=== PATIENT | male | born 1955 | race Caucasian/White ===

== ENCOUNTER 2018-11-11 16:10 | Inpatient (IN) | payer BC ==
[2018-11-11] VITALS (14 sets, daily range): BP systolic 130–153; BP diastolic 76–93; PULSE 80–105; RESP 10–23; Ht 180.3 cm; Wt 98.4 kg
[~2018-11-11] VITALS: Ht 180.3 cm; Wt 98.4 kg
[~2018-11-11 16:10] MED LIST: ATOR10TA65 PO; DESFLURANE 15 MIN ONE
[2018-11-11] MEDS ORDERED: LACTATED RINGER'S 1,000 ML IV SCH (17:00)
[2018-11-11] MEDS ORDERED: POLYMYXIN/BACITRACIN 1L IRRIG ONE (17:53)
[2018-11-11] MEDS ORDERED: POVIDONE IODINE 10% 28.4 GM OINT ONE (17:53)
[2018-11-11] MEDS ORDERED: ROPIVACAINE 0.5 % 30 ML VIAL ONE ×2 (17:53→18:00)
[2018-11-11] MEDS ORDERED: ONDANSETRON 4 MG INJ ONE (17:59)
[2018-11-11] MEDS ORDERED: FENTAnyl 50 MCG/ML VIAL ONE (17:59)
[2018-11-11] MEDS ORDERED: DEXAMETHASONE 4 MG/ML 5 ML INJ ONE (17:59)
[2018-11-11] MEDS ORDERED: CEFAZOLIN 1 GM INJ ONE (17:59)
[2018-11-11] MEDS ORDERED: MIDAZOLAM 1 MG/ML 2 ML INJ ONE (17:59)
[2018-11-11] MEDS ORDERED: GLYCOPYRROLATE 0.4 MG INJ ONE (17:59)
[2018-11-11] MEDS ORDERED: ROCURONIUM 50 MG INJ ONE (17:59)
[2018-11-11] MEDS ORDERED: PROPOFOL 20 ML ONE (17:59)
[2018-11-11] MEDS ORDERED: NEOSTIGMINE 3 MG/3 ML SYRINGE ONE (17:59)
--- NOTE | 2018-11-11 18:09 | PREAC ---
Date/Time of Note Date/Time of Note DATE: 11/11/18 TIME: 18:07 Anesthesia Eval and Record Evaluation Time Pre-Procedure Interview DATE: 11/11/18 TIME: 18:07 Age 63 Sex male NPO: 8 hrs Preoperative diagnosis Right Ankle Fracture Planned procedure Right Ankle Arthroscopy, Extensive Debridment and ORIF of the Right Ankle Past Medical History Past Medical History: Includes Cardio: Dyslipidemia Surgery & Anesthesia Issues No known issue Meds Anticoagulation: No Beta Adan within 24 hr: No Reason Beta Adan not given: Pt. not on B-Adan Reported Medications Atorvastatin Calcium (Atorvastatin Calcium) 10 Mg Tablet, 10 MG PO QHS, #30 TAB 11/11/18 Current Medications Lactated Ringer's 1,000 ml @ 30 mls/hr Q24H IV ; Start 11/11/18 at 17:00 Meds reviewed: Yes Allergies Coded Allergies: No Known Allergy (Unverified , 11/11/18) Allergies Reviewed: Yes Labs/Studies Labs Reviewed: Reviewed by anesthesiologist test: N/A Studies: ECG (n/a), CXR (n/a) Pre-procedure Exam Last vitals Vital Signs Date Temp Pulse Resp B/P (MAP) Pulse Ox O2 O2 Flow FiO2 Time Delivery Rate 11/11/18 97.0 105 16 141/93 98 Room Air 16:53 (109) Airway: Adequate mouth opening, Adequate thyromental dist Mallampati: Mallampati II Teeth: Normal Lung: Normal Heart: Normal ASA Physical Status ASA physical status: 2 Emergency: None Planned Anesthetic General/MAC: ETT Nerve block: Femoral (right), Sciatic (right) Planned Pain Management Single shot nerve block, Parenteral pain med Pre-operative Attestations Prior to commencing anesthesia and surgery, the patient was re-evaluated, there was verification of: *The patient's identity *The results of appropriate recent lab work and preoperative vital signs *The above evaluation not changing prior to induction *Anesthetic plan, risk benefits, alternative and complications discussed with patient/family; questions answered; patient/family understands, accepts and wishes to proceed. ALFIE ELMORE MD Nov 11, 2018 18:09
[2018-11-11] MEDS ORDERED: THROMBIN (BOVINE) 5,000 UNIT VIAL TP ONE (18:10)
[2018-11-11] MEDS ORDERED: CA CHLORIDE (GM) 10% 10 ML INJ ONE (18:10)
[2018-11-11] MEDS ORDERED: METOCLOPRAMIDE 10 MG INJ ONE (22:08)
--- NOTE | 2018-11-11 22:23 | PAC ---
Date/Time of Note Date/Time of Note DATE: 11/11/18 TIME: 22:22 Post-Anesthesia Notes Post-Anesthesia Note Last documented vital signs Vital Signs Date Temp Pulse Resp B/P (MAP) Pulse Ox O2 O2 Flow FiO2 Time Delivery Rate 11/11/18 97.0 105 16 141/93 98 Room Air 22:23 (109) Activity: WNL Respiratory function: WNL Cardiovascular function: WNL Mental status: Baseline Pain reasonably controlled: Yes Hydration appropriate: Yes Nausea/Vomiting absent: Yes David Izquierdo M.D. Nov 11, 2018 22:23
--- NOTE | 2018-11-11 22:25 | OPPN ---
Date/Time of Note Date/Time of Note DATE: 11/11/18 TIME: 22:24 Operative Report Preoperative Diagnosis Right medial malleolous fracture Postoperative Diagnosis same Operation/Procedure Performed Arthroscopic debridement of right ankle and open reduction internal fixation of right medial mal fracture. Surgeon see signature line mechanic's assistant DO Gwen Anesthesia: general Estimated blood loss: 10 - 50 ml's Transfusion Required none Specimen none Grafts/Implants none Complications none KAT GILBERT MD Nov 11, 2018 22:25
[2018-11-11] MEDS ORDERED: DIPHENHYDRAMINE 25 MG CAP PO PRN (22:30)
[2018-11-11] MEDS ORDERED: ONDANSETRON 4 MG INJ IV PRN (22:30)
[2018-11-11] MEDS ORDERED: BISACODYL 10 MG SUPP PR PRN (22:30)
[2018-11-11] MEDS ORDERED: OXYCODONE/ACETAMINOPHEN (5/325) TAB PO PRN (22:30)
[2018-11-11] MEDS ORDERED: morphine 10 MG INJ IV PRN (22:30)
[2018-11-11] MEDS ORDERED: HYDROmorphONE 0.2 MG/ML PCA IV SCH ×2 (22:30→23:00)
[2018-11-11] MEDS: CEFAZOLIN 1 GM/50 ML (PMX) 50 ML IVPB SCH (22:55)
[2018-11-11] MEDS: SOD CHLORIDE 0.9% 1,000 ML IV SCH (23:59)
--- NOTE | 2018-11-12 00:47 | OPR ---
DATE OF OPERATION: 11/11/2018 PREOPERATIVE DIAGNOSIS: Rotated displaced fracture of the medial malleolus, right ankle. POSTOPERATIVE DIAGNOSES: 1. Rotated displaced fracture of the medial malleolus, right ankle. 2. Osteochondral injury to the lateral talar dome without displacement, except for a small portion o f the cartilage. 3. Fracture debris, hematoma and cartilage fracture fragments. OPERATION PERFORMED: 1. Arthroscopy of the right ankle with soft tissue distraction. 2. Extensive debridement of the ankle. 3. Open reduction and fixation of the medial malleolar fracture with two 4.0 AO cannulated screws. 4. Use of fluoroscopy to verify position and reduction of the medial malleolus and of the screws. 5. Short-leg cast. SURGEON: Kat Flowers M.D. YEAST PUMPER: Johnathon Hidalgo D.O. ANESTHESIA: General with popliteal block. TOURNIQUET TIME: 72 minutes. DESCRIPTION OF PROCEDURE: The patient was taken to the operating room and placed in supine position. Satisfactory popliteal block was given. Satisfactory general anesthesia was administered, 2 grams Ancef intravenously. The right thigh was secured in the thigh valentino. Right leg was prepped and cortney ped in the usual manner. Superficial peroneal nerve was marked out. Soft tissue distraction was opal lied. Standard anteromedial, anterolateral, and posterolateral portals were used using extreme cauti on to avoid injuring the neurovascular structures. There was a displaced fracture of the medial mall eolus that we could see. There were some fracture fragments of cartilage and bone, but they were sma ll in nature. The majority of the fragment was intact. The medial talar dome was intact. Central o verhang was intact. Syndesmosis looked intact. There was scarring and hematoma on the lateral gutte r. The anterior talofibular ligament, otherwise looked intact. On the lateral talar dome; however, there was a nondisplaced crack of the cartilage from very anteriorly to the mid zone. I could put a probe and it was probably about a millimeter up to 2 mm deep fairly into the bone. It was not displa josue. There was a small displaced fragment more centrally, which was removed with a grasper and shave r. Loose bodies removed with a shaver along the medial malleolar talar articulation. The posterior gutter was debrided. The posterior articulation was smooth and glistening as was the central articul ation of the tibia and the talus. Curettes were used to remove all of the fracture hematoma from the medial malleolus. This was excised with the shaver. Once the fracture was well outlined proximally and distally, all the loose fragments were removed. We tried to reduce it, and it was not easy to r educe or to rotate. After complete debridement of the ankle anteriorly, centrally and posteriorly, t he ankle was irrigated clear. Ankle was then reprepped and draped. All new gowns and gloves and new instruments were used. Incision was made over the medial malleolus, centered anterior to posterior. Dissection carried down to subcutaneous tissue. Once we got down to the level of the periosteum, we felt where the fracture was displaced and made a transverse incision in line with the fracture, elevated the periosteum prox imally and distally until we could see the anterior portion of the fracture and posterior portion. W e carefully retracted the posterior tibial tendon and it remained intact. Further debridement of the fracture was done. We then used a reduction clamp, reduced it, temporarily fixate it with a 0.045 K -wire, checked in AP and lateral planes, and it looked like it was anatomically reduced. Two guide p ins and the 4.0 AO cannulated screw set were then inserted, checked in the AP and lateral position. Once they were appropriately positioned, a drill was placed over the pins just across the fracture si te and then two 50 mm 4.0 AO cannulated screws were then inserted and excellent fixation was obtained . They were checked in AP and lateral planes and looked to be in appropriate position with excellent reduction of the medial malleolus. Guide pins were removed. Final fluoroscopic views were then edward en that showed good position and alignment of the fracture in all planes. Wounds were irrigated with antibiotic solution. The periosteum was closed with a running 3-0 PDS. Subcutaneous tissue was bertin sed with 2-0 and 3-0 undyed Vicryl. Skin was closed with 4-0 black nylon. Saphenous nerve block wit h 0.5% ropivacaine. Compression dressing was applied as well as short-leg cast in neutral position. Cast was split in the recovery room. At the end of procedure, sponge and needle count was correct. The patient tolerated the procedure well and was brought to recovery room in stable condition. AIRBRUSH PAINTER ORTHOPEDIC SURGEON: During the procedure, an tax assistant orthopedic surgeon was used at [facility]. The tax assistant helped with manipulating the arthroscope, distracting the ankle and also with reducing the fracture and inserting the screws. While I held the fracture reduced, the tax assistant put the guide pins in and then we both put the screws in. Without a skilled orthopedic surgeon eran pena, we could not have done this and should be compensated appropriately. Dictated By: KAT AWAN/DANIELLE Conf#: [id number] DID#: [id number]
[2018-11-12 02:30] VITALS: BP 157/82; PULSE 96; RESP 19
[2018-11-12] MEDS: CEFAZOLIN 1 GM/50 ML (PMX) 50 ML IVPB SCH (05:32)
--- NOTE | 2018-11-12 06:28 | PN ---
Date/Time of Note Date/Time of Note DATE: 11/12/18 TIME: 06:21 Assessment/Plan VTE Prophylaxis Risk score (from Nsg)>0 risk: 7 SCD applied (from Nsg): Yes Pharmacological prophylaxis: other Lines/Catheters IV Catheter Type (from Nrsg): Peripheral IV Subjective 24 Hr Interval Summary Free Text/Dictation 63 y/o M POD#1 right ankle arthroscopy and open reduction internal fixation right medial malleolus ankle fracture S: Pt doing very well. Block still working. Minimal to no pain. No chest pain, shortness of breath, fever, chills, nausea, vomiting. He is eager to go home today. O: AFVSS, NAD, AAOx3 MSK: RLE: cast in place, toes warm and well perfused, minimal to no sensation to light touch and unable to wiggle toes as block is still in effect Plan: 1. Up with PT this morning. 2. If does well with PT, then he is ok for d/c home today 3. Home health to visit pt at home today at 4 pm per pt 4. Pain control 5. dvt ppx: scd's, ambulation 6. iv abx: ancef while in the hospital 7. NWB RLE 8. Ok to be up to the restroom with assistance Exam/Review of Systems Exam Vitals Vital Signs Date Temp Pulse Resp B/P (MAP) Pulse Ox O2 O2 Flow FiO2 Time Delivery Rate 11/12/18 97.8 96 19 157/82 97 02:30 (107) 11/11/18 Nasal 2.0 23:15 Cannula Intake and Output 11/11/18 11/11/18 11/12/18 1515:00 23:00 07:00 IntakeIntake Total 2000 ml 550 ml OutputOutput Total 20 ml BalanceBalance 1980 ml 550 ml Medications Medication Current Medications Lactated Ringer's 1,000 ml @ 30 mls/hr Q24H IV ; Start 11/11/18 at 17:00 Senna/Docusate Sodium (Senokot-S) 1 tab BID PO ; Start 11/12/18 at 09:00 Magnesium Hydroxide (Milk Of Mag) 30 ml HS PO ; Start 11/13/18 at 21:00 Bisacodyl (Dulcolax Supp) 10 mg DAILY PRN GA CONSTIPATION; Start 11/11/18 at 22:30 Sodium Chloride 1,000 ml @ 100 mls/hr Q10H IV Last administered on 11/11/18at 23:59; Admin Dose 100 MLS/HR; Start 11/11/18 at 22:25 Oxycodone/ Acetaminophen (Percocet (5/ 325)) 2 tab Q4H PRN PO PAIN; Start 11/11/18 at 22:30 Morphine Sulfate (morphine) 5 mg Q4H PRN IV PAIN LEVEL 7-10; Start 11/11/18 at 22:30 Cefazolin Sodium 50 ml @ 100 mls/hr Q8H IVPB Last administered on 11/12/18at 05:32; Admin Dose 100 MLS/HR; Start 11/11/18 at 22:30; Stop 11/13/18 at 14:59 Ondansetron HCl (Zofran Inj) 4 mg Q4H PRN IV NAUSEA AND/OR VOMITING; Start 11/11/18 at 22:30 Diphenhydramine HCl (Benadryl) 25 mg Q4H PRN PO ITCHING; Start 11/11/18 at 22:30 Hydromorphone HCl (Dilaudid PAIN MANAGEMENT NURSE) MG/HR CONTINUOUS RATE ... Q4PCA IV Last administered on 11/11/18at 22:57; Admin Dose 0.2 MG; Start 11/11/18 at 23:00 KAT GILBERT MD Nov 12, 2018 06:28
[2018-11-12 07:13] VITALS: BP 145/80; PULSE 91; RESP 18
[2018-11-12] MEDS: SOD CHLORIDE 0.9% 1,000 ML IV SCH (08:25)
[2018-11-12] MEDS ORDERED: SENNA/DOCUSATE NA (8.6MG/50MG) TAB PO SCH (09:00)
[2018-11-13] MEDS ORDERED: MAGNESIUM HYDROXIDE 30ML CUP PO SCH (21:00)
--- NOTE | 2018-11-15 01:19 | DS ---
DATE OF ADMISSION: 11/11/2018 DATE OF DISCHARGE: 11/12/2018 DISCHARGE DIAGNOSIS: Displaced fracture dislocation of the right medial malleolus of the ankle. SURGERY: On 11/11/2018 with: 1. Arthroscopy right ankle. 2. Extensive debridement of the ankle. 1. Open reduction and fixation of the medial malleolar fracture. HISTORY OF PRESENT ILLNESS: The patient is a 63-year-old male who fell, suffered a displaced fractur e of the medial malleolus, admitted now for surgery. PAST MEDICAL HISTORY: See the history and physical record. PHYSICAL EXAMINATION: Normal except the orthopedic exam which revealed pain and swelling in the ankl e, particularly along the medial malleolus with decreased range of motion and strength. Laboratory was normal. Chest x-ray was clear. EKG was stable. HOSPITAL COURSE: The patient was cleared medically, taken to the operating room, underwent above-men tioned procedure. Postoperatively, he was kept overnight in observation because he was too unsteady on crutches and he had pain. He was up walking with physical therapy. DISCHARGE PLAN: I saw the patient. He was discharged on pain medication and antibiotics, to be foll owed in the office in 1 week. Dictated By: KAT GILBERT MD RF/NTS Conf#: [id number] DID#: [id number]
== END 2018-11-12 13:05 | disposition home or self-care (01) | DRG 494 ==
LOC: SDS 16:10 → MS1 22:25
PROVIDERS: ADMIT Orthopaedic Surgery; ATTEND Orthopaedic Surgery
PROC: 0SCF4ZZ Extirpation of Matter from Right Ankle Joint, Percutaneous Endoscopic Approach (ICD-10-PCS; 2018-11-11)
PROC: 0QSG04Z Reposition Right Tibia with Internal Fixation Device, Open Approach (ICD-10-PCS; principal; 2018-11-11 17:30)
DX: S82.51XA Displaced fracture of medial malleolus of right tibia, initial encounter for closed fracture (principal); M24.071 Loose body in right ankle; E78.5 Hyperlipidemia, unspecified; W19.XXXA Unspecified fall, initial encounter
CPT/HCPCS: 97161; C1713; J0690; J1100; J1170; J2250; J2405; J2710; J2765; J2795; J3010; J7030; J7120